=== PATIENT | female | born 1950 | race Caucasian/White ===

== ENCOUNTER → 2018-06-05 | Day surgery (SDC) | payer MEDICARE, OTHER ==
--- NOTE | 2018-05-30 15:44 | Diagnostic Imaging Report ---
EXAM: XR CHEST 2 VIEWS DATE: 05/30/2018 3:20 PM INDICATION: Preoperative. Right breast cancer. Hypertension. COMPARISON: 07/01/2016 FINDINGS: Lines and Tubes: None Heart and Mediastinum: No acute cardiomediastinal findings. Lungs and Pleura: Ill-defined haziness overlying the left lung base likely represents asymmetric breast tissue. No pneumothorax or pleural effusion. Bones and Soft Tissues: Right mastectomy changes and right axillary dissection changes. IMPRESSION: 1. No acute cardiopulmonary findings. Signed by: Dr. Rolly Arevalo MD on 05/30/2018 3:41 PM
[2018-05-30 16:02] LABS: BASOPHILS % 0.6 % (0.0-1.0); EOSINOPHILS # (AUTO) 0.1 (0.0-0.4); EOSINOPHILS % 1.5 % (0.0-6.0); HEMATOCRIT 38.7 % (34.2-44.1); HEMOGLOBIN 12.3 g/dL (12.0-16.0); LYMPHOCYTES # (AUTO) 1.9 (1.0-3.2); LYMPHOCYTES % 27.2 % (18.0-39.1); MEAN CORPUSCULAR HEMOGLOBIN 31.4 pg (28-32); MEAN CORPUSCULAR HGB CONC 31.8 g/dL (31-35); MEAN CORPUSCULAR VOLUME 98.7 fL (81-99); MONOCYTES # (AUTO) 0.5 (0.2-0.8); MONOCYTES % 6.8 % (4.4-11.3); NEUTROPHILS # (AUTO) 4.4 (2.1-6.9); NEUTROPHILS % 63.6 % (38.7-80.0); PLATELET COUNT 238 x10e3/uL (140-360); RED BLOOD COUNT 3.92 x10e6/uL (3.6-5.1); RED CELL DISTRIBUTION WIDTH 13.8 % (11.7-14.4)
[2018-05-30 16:22] LABS: CALCIUM 9.7 mg/dL (8.4-10.2); CREATININE, SERUM 0.98 mg/dL (0.57-1.11)
[~2018-06-05] MED LIST: ANASTROZOLE1 MG PO; CEFADROXIL1 GM PO; CEFAZOLIN SOD 1 GM VIAL ONE; DEXAMETHASONE SOD PHOS INJ 4 MG/ML VIAL ONE; FENTANYL CITRATE/PF 100MCG/2 ML INJ ONE; KETOROLAC TROMETHAMINE 30 MG/ML VIAL ONE; LIDOCAINE HCL 2% LOCAL INJ 5 ML SDV VIAL INJ ONE; LISINOPRIL10 MG PO; LORAZEPAM1 MG PO; METOPROLOL TART25 MG PO; MIDAZOLAM HCL 2 MG/2 ML VIAL ONE; ONDANSETRON HCL INJ 2 MG/ML VIAL ONE; PAROXETINE HCL40 MG PO; PAXIL40 MG PO; PRISTIQ ER50 MG PO; PROPOFOL IV EMULSION 10 MG/ML 20 ML VIAL ONE; SEVOFLURANE INHAL SOLN 250 ML PEN BTL ONE
--- OUTSIDE RECORDS SUMMARY | 2018-06-05 05:18 | XMS REPORT | Clinical Summary ---
Author Author [facility] Address Unknown Phone Unavailable Care Team Providers Care Plastic Battery Assembler Name Role Phone Ivanna Bailey MD PCP Allergies Active Allergy Reactions Severity Noted Date Comments Jykkmcf-Ueo-Yno Reductase 04/04/2018 Lips swell Inhibitors Current Medications Prescription Sig. Disp. Refills Start End Date Status Date anastrozole (ARIMIDEX) 1 Take 1 mg by mouth daily. 03/23/20 Active mg chemo tablet 18 cefadroxil (DURICEF) 1 Take 1 g by mouth daily. 03/09/20 Active gram tablet 18 cyclobenzaprine Take 10 mg by mouth 03/09/20 Active (FLEXERIL) 10 mg tablet nightly. 18 desvenlafaxine (PRISTIQ) Take 50 mg by mouth 03/09/20 Active 50 MG 24 hr tablet nightly. 18 lisinopril Take 20 mg by mouth 03/09/20 Active (PRINIVIL,ZESTRIL) 20 mg daily. 18 tablet LORAZepam (ATIVAN) 1 MG Take 1 mg by mouth 03/28/20 Active tablet nightly. 18 PARoxetine (PAXIL) 40 MG Take 40 mg by mouth 03/11/20 Active tablet nightly. 18 multivit with Take 1 tablet by mouth Active calcium,iron,min (WOMEN'S daily. DAILY MULTIVITAMIN ORAL) calcium carbonate Take 1 tablet by mouth Active (CALCIUM 600 ORAL) daily. cholecalciferol, vitamin Take 1,000 Units by mouth Active D3, (VITAMIN D3) 1,000 daily. unit tablet vit Take 1 tablet by mouth 2 Active C/E/Zn/coppr/lutein/zeaxa (two) times a day. n (PRESERVISION AREDS 2 ORAL) UNABLE TO FIND Take 2 tablets by mouth Active daily. Cholestoff vitamin E 400 UNIT Take 400 Units by mouth Active capsule daily. vitamin B complex (B Take 1 tablet by mouth Active COMPLEX-VITAMIN B12 ORAL) daily. docosahexanoic acid/epa Take 1 capsule by mouth Active (FISH OIL ORAL) daily. Active Problems Problem Noted Date S/P total hip arthroplasty 04/23/2018 Encounters Date Type Specialty Care Team Description 05/09/2018 Office Visit Orthopedic Surgery Alan Jackson MD Status post right hip replacement (Primary Dx) 04/23/2018 [facility] Orthopedic Surgery Alan Jackson MD Status post total - Encounter replacement of right hip 04/24/2018 (Primary Dx); Arthritis of right hip 04/23/2018 Procedure Pass Orthopedic Surgery 04/23/2018 Surgery Orthopedic Surgery Alan Jackson MD ARTHROPLASTY, HIP, TOTAL 04/11/2018 Pre-Admit Pre-Admission Testing Alan Jackson MD Preop testing (Primary Testing Dx) Appointment 04/11/2018 [facility] 04/04/2018 Office Visit Orthopedic Surgery Alan Jackson MD Arthritis of both hips (Primary Dx) 04/04/2018 Orders Only Orthopedic Surgery Meenakshi Caruso MA Bilateral hip pain (Primary Dx) after 06/04/2017 Immunizations Name Dates Previously Given Next Due FLUCELVAX QUAD PF (0.5mL 04/24/2018 syringe) Social History Tobacco Use Types Packs/Day Years Used Date Never Smoker Smokeless Tobacco: Never Used Alcohol Use Drinks/Week oz/Week Comments Yes rare Sex Assigned at Date Recorded Not on file Last Filed Vital Signs Vital Sign Reading Time Taken Blood Pressure 107/56 04/24/2018 10:41 AM CDT Pulse 88 04/24/2018 7:38 AM CDT Temperature 36 C (96.8 F) 04/24/2018 3:54 AM CDT Respiratory Rate 16 04/24/2018 7:38 AM CDT Oxygen Saturation 95% 04/24/2018 7:38 AM CDT Inhaled Oxygen - - Concentration Weight 73.1 kg (161 lb 3.2 oz) 04/23/2018 6:20 AM CDT Height 162.6 cm (5' 4") 04/23/2018 6:20 AM CDT Body Mass Index 27.67 04/23/2018 6:20 AM CDT Plan of Treatment Date Type Specialty Care Team Description 08/29/2018 Office Visit Orthopedic Surgery Alan Jackson MD [address] [address] [phone] Health Maintenance Due Date Last Done Comments BREAST CANCER SCREENING 01/09/1998 COLON CANCER SCREENING 01/09/1998 SHINGRIX VACCINE (#1) 01/09/1998 ZOSTER VACCINE 2008 PNEUMOCOCCAL 01/09/2013 POLYSACCHARIDE VACCINE AGE 65 AND OVER PNEUMOCOCCAL-13 01/09/2013 INFLUENZA VACCINE Completed 04/24/2018 Implants Implanted Type Area Heel Brusher Device Expiration Model / Identifier Date Serial / Lot G7 Acetabular Shell 3 Hole - IPM Right: Hip [employer] 03/01/2028 [id number] / Implanted: Qty: 1 on 04/23/2018 by [employer]ICES / Alan Jackson MD [id number] G7 Neutral E1 Liner 36mm E - IPM Right: Hip [employer] 02/03/2023 [id number] IMPLANT / Implanted: Qty: 1 on 04/23/2018 by [employer] / Alan Jackson MD [id number] Tprlc Stem - [id number] IPM Right: Hip [employer] 02/09/2028 [id number] Implanted: Qty: 1 on 04/23/2018 by YI / Alan Jackson MD [employer]ICES / [id number] Cer Bioloxd Mod Hd 36mm +6 Nk - IPM Right: Hip [employer] 07/20/2026 [id number] IMPLANT / Implanted: Qty: 1 on 04/23/2018 by [employer] / Alan Jackson MD [id number] Screw Bone Slf-Tap 6.5x25mm Trilogy Orthopedic Right: Hip [employer] 03/13/2028 [id number] - [id number] Trauma 5 / Implanted: Qty: 1 on 04/23/2018 by Implants / Alan Jackson MD [id number] Screw Bone Slf-Tap 6.5x25mm Trilogy Orthopedic Right: Hip [employer] 02/11/2028 [id number] - [id number] Trauma 5 / Implanted: Qty: 1 on 04/23/2018 by Implants / Alan Jackson MD [id number] Explanted Type Area Heel Brusher Device Expiration Model / Identifier Date Serial / Lot Screw Bone Slf-Tap 6.5x20mm Trilogy Orthopedic Right: Hip [employer] 02/11/2028 [id number] - [id number] Trauma 0 / Implanted: Qty: 1 Implants / Explanted: 04/23/2018 (Quantity not [id number] on file) Procedures Procedure Name Priority Date/Time Associated Diagnosis Comments POC GLUCOSE Routine 04/24/2018 Results for this 7:42 AM CDT procedure are in the results section. ZZESTIMATED GFR Routine 04/24/2018 Results for this 4:05 AM CDT procedure are in the results section. PHOSPHORUS LEVEL Routine 04/24/2018 Results for this 4:05 AM CDT procedure are in the results section. MAGNESIUM LEVEL Routine 04/24/2018 Results for this 4:05 AM CDT procedure are in the results section. B NATRIURETIC PEPTIDE Routine 04/24/2018 Results for this 4:05 AM CDT procedure are in the results section. BASIC METABOLIC PANEL Routine 04/24/2018 Results for this 4:05 AM CDT procedure are in the results section. CBC WITH PLATELET AND Routine 04/24/2018 Results for this DIFFERENTIAL 4:05 AM CDT procedure are in the results section. POC GLUCOSE Routine 04/23/2018 Results for this 9:23 PM CDT procedure are in the results section. XR HIP 2-3 VIEWS RIGHT Routine 04/23/2018 Results for this 7:31 PM CDT procedure are in the results section. POC GLUCOSE Routine 04/23/2018 Results for this 5:19 PM CDT procedure are in the results section. XR PELVIS 1 OR 2 VW Routine 04/23/2018 Results for this 10:22 AM CDT procedure are in the results section. SURGICAL PATHOLOGY Routine 04/23/2018 Results for this REQUEST 9:52 AM CDT procedure are in the results section. POC GLUCOSE Routine 04/23/2018 Results for this 9:48 AM CDT procedure are in the results section. XR PELVIS 1 OR 2 VW Routine 04/23/2018 Results for this 8:52 AM CDT procedure are in the results section. ARTHROPLASTY, HIP, TOTAL 04/23/2018 Arthritis of right hip 8:30 AM CDT Special Needs BIOMET ANESTHESIA SPINAL BLOCK Routine 04/23/2018 7:47 AM CDT Procedure Note - Sandra Palma MD - 04/23/2018 7:47 AM CDT Spinal Block Performed by: SANDRA PALMA Authorized by: SANDRA PALMA Patient Location: Pre-op Start Time: 04/23/2018 7:41 AM End Time: 04/23/2018 7:47 AM Reason for Block: at surgeon's request Staff: Anesthesio logist: SANDRA PALMA Performed by: Anesthesio hedy patient identified , IV checked, site and side verified, risks and benefits discussed, procedure verified, surgical consent complete, patient position confirmed, monitors and equipment checked and pre-op evaluation complete TIme Out Performed: 04/23/2018 7:38 AM Spinal Block: Patient Position: Sitting Prep: Betadine Monitoring : Blood pressure monitoring , continuous pulse oximetry and heart rate Approach: Midline Interspace : L2-3 Injection Technique: Single injection Needle: Needle Type: Quincke Needle Gauge: 22 G Assessment : Coagulatio n status: Coagulatio n status verified Block assessment : No apparent complicati ons and patient tolerated procedure well Notes: X 3 attempts, significan t leftward deviation and limited landmarks POC GLUCOSE Routine 04/23/2018 Results for this 6:39 AM CDT procedure are in the results section. URINE CULTURE Routine 04/11/2018 Results for this 1:45 PM CDT procedure are in the results section. ZZESTIMATED GFR Routine 04/11/2018 Results for this 1:12 PM CDT procedure are in the results section. PARTIAL THROMBOPLASTIN Routine 04/11/2018 Preop testing Results for this TIME (PTT) 1:12 PM CDT procedure are in the results section. PROTHROMBIN TIME WITH INR Routine 04/11/2018 Preop testing Results for this 1:12 PM CDT procedure are in the results section. URINALYSIS SCREEN AND Routine 04/11/2018 Preop testing Results for this MICROSCOPY, WITH REFLEX 1:12 PM CDT procedure are in the TO CULTURE results section. TYPE AND SCREEN Routine 04/11/2018 Preop testing Results for this 1:12 PM CDT procedure are in the results section. HEMOGLOBIN A1C Routine 04/11/2018 Preop testing Results for this 1:12 PM CDT procedure are in the results section. COMPREHENSIVE METABOLIC Routine 04/11/2018 Preop testing Results for this PANEL 1:12 PM CDT procedure are in the results section. HC COMPLETE BLD COUNT Routine 04/11/2018 Preop testing Results for this W/AUTO DIFF 1:12 PM CDT procedure are in the results section. XR HIP 3-4 VIEWS Routine 04/04/2018 Bilateral hip pain Results for this BILATERAL 9:09 AM CDT procedure are in the results section. after 06/04/2017 Results * POC glucose (04/24/2018 7:42 AM) Only the most recent of 5 results within the time period is included. POC glucose 105 (H) 65 - 99 mg/dL [facility] DEPARTMENT OF Comment: PATHOLOGY AND [facility] Notified RN GENOMIC MEDICINE Meter ID: [id number] Academic Tutor: Julio Parish Performing Organization Address City/[facility] Phone Number [facility] DEPARTMENT OF [address] [place] [address] PATHOLOGY AND GENOMIC MEDICINE * Estimated GFR (04/24/2018 4:05 AM) Only the most recent of 2 results within the time period is included. GFR Non Af Amer 62 mL/min/1.73 m2 [facility] DEPARTMENT OF PATHOLOGY AND GENOMIC MEDICINE GFR Af Amer 75 mL/min/1.73 m2 [facility] DEPARTMENT OF Comment: PATHOLOGY AND Chronic kidney disease: <60 GENOMIC MEDICINE mL/min/1.73m2 Kidney failure: <15 mL/min/1.73m2 The estimated GFR is calculated from the IDMS-traceable Modification of Diet in Renal Disease Equation. The accuracy of the calculation is poor when the creatinine is normal. Calculated values >90 mL/min/1.73m2 are not reported. This equation has not been validated in children (<18 years), women, the elderly (>70 years), or ethnic groups other than Caucasians and Americans. Specimen Plasma specimen Performing Organization Address City/State/Zipcode Phone Number [facility] DEPARTMENT OF [address] [place] [address] PATHOLOGY AND [employer] MEDICINE * CBC with platelet and differential (04/24/2018 4:05 AM) Only the most recent of 2 results within the time period is included. WBC 6.55 4.50 - 11.00 k/uL [facility] DEPARTMENT OF PATHOLOGY AND GENOMIC MEDICINE RBC 3.17 (L) 4.20 - 5.50 m/uL [facility] DEPARTMENT OF PATHOLOGY AND GENOMIC MEDICINE HGB 10.0 (L) 12.0 - 16.0 g/dL [facility] DEPARTMENT OF PATHOLOGY AND GENOMIC MEDICINE HCT 31.5 (L) 37.0 - 47.0 % [facility] DEPARTMENT OF PATHOLOGY AND GENOMIC MEDICINE MCV 99.4 82.0 - 100.0 fL [facility] DEPARTMENT OF PATHOLOGY AND GENOMIC MEDICINE MCH 31.5 27.0 - 34.0 pg [facility] DEPARTMENT OF PATHOLOGY AND GENOMIC MEDICINE MCHC 31.7 31.0 - 37.0 g/dL [facility] DEPARTMENT OF PATHOLOGY AND GENOMIC MEDICINE RDW - SD 48.5 37.0 - 55.0 fL [facility] DEPARTMENT OF PATHOLOGY AND GENOMIC MEDICINE MPV 10.7 8.8 - 13.2 fL [facility] DEPARTMENT OF PATHOLOGY AND GENOMIC MEDICINE Platelet count 194 150 - 400 k/uL [facility] DEPARTMENT OF PATHOLOGY AND GENOMIC MEDICINE Nucleated RBC 0.00 /100 WBC [facility] DEPARTMENT OF PATHOLOGY AND GENOMIC MEDICINE Neutrophils 61.9 39.0 - 69.0 % [facility] DEPARTMENT OF PATHOLOGY AND GENOMIC MEDICINE Lymphocytes 27.5 25.0 - 45.0 % [facility] DEPARTMENT OF PATHOLOGY AND GENOMIC MEDICINE Monocytes 9.5 0.0 - 10.0 % [facility] DEPARTMENT OF PATHOLOGY AND GENOMIC MEDICINE Eosinophils 0.5 0.0 - 5.0 % [facility] DEPARTMENT OF PATHOLOGY AND GENOMIC MEDICINE Basophils 0.3 0.0 - 1.0 % [facility] DEPARTMENT OF PATHOLOGY AND GENOMIC MEDICINE Immature granulocytes 0.3Comment: "Immature 0.0 - 1.0 % [facility] DEPARTMENT OF granulocytes" (promyelocytes, PATHOLOGY AND myelocytes, metamyelocytes) GENOMIC MEDICINE Specimen Blood Performing Organization Address City/[facility] [place] [address] PATHOLOGY AND [facility] * Phosphorus level (04/24/2018 4:05 AM) Phosphorus 3.0 2.4 - 4.5 mg/dL [facility] DEPARTMENT OF PATHOLOGY AND GENOMIC MEDICINE Specimen Plasma specimen Performing Organization Address City/[facility] [place] [address] PATHOLOGY AND [facility] MEDICINE * B natriuretic peptide (04/24/2018 4:05 AM) BNP 61 0 - 100 pg/mL [facility] DEPARTMENT OF PATHOLOGY AND GENOMIC MEDICINE Specimen Blood Performing Organization Address [facility] Phone Number [facility] [place] [address] PATHOLOGY AND GENOMIC MEDICINE * Magnesium level (04/24/2018 4:05 AM) Magnesium 1.9 1.6 - 2.4 mg/dL [facility] DEPARTMENT OF PATHOLOGY AND GENOMIC MEDICINE Specimen Plasma specimen Performing Organization Address [facility] [place] [address] PATHOLOGY AND GENOMIC MEDICINE * Basic metabolic panel (04/24/2018 4:05 AM) Sodium 141 135 - 148 mEq/L [facility] DEPARTMENT OF PATHOLOGY AND GENOMIC MEDICINE Potassium 4.4 3.5 - 5.0 mEq/L [facility] DEPARTMENT OF PATHOLOGY AND GENOMIC MEDICINE Chloride 104 98 - 112 mEq/L [facility] DEPARTMENT OF PATHOLOGY AND GENOMIC MEDICINE CO2 26 24 - 31 mEq/L [facility] DEPARTMENT OF PATHOLOGY AND GENOMIC MEDICINE Anion gap 11@ANIO 7 - 15 mEq/L [facility] DEPARTMENT OF PATHOLOGY AND GENOMIC MEDICINE BUN 13 8 - 23 mg/dL [facility] DEPARTMENT OF PATHOLOGY AND GENOMIC MEDICINE Creatinine 0.9 0.50 - 0.90 mg/dL [facility] DEPARTMENT OF PATHOLOGY AND GENOMIC MEDICINE Glucose 101 (H) 65 - 99 mg/dL [facility] DEPARTMENT OF PATHOLOGY AND GENOMIC MEDICINE Calcium 8.5 (L) 8.8 - 10.2 mg/dL [facility] DEPARTMENT OF PATHOLOGY AND GENOMIC MEDICINE Specimen Plasma specimen Performing Organization Address [facility] Phone Number [facility] DEPARTMENT OF [address] [place] [address] PATHOLOGY AND GENOMIC MEDICINE * XR Hip 2-3 View Right (04/23/2018 7:31 PM) Narrative Performed At EXAMINATION:XR HIP 2-3 VIEWS RIGHT [facility] CLINICAL HISTORY:post-op COMPARISON:None. IMPRESSION: 1.2 view evaluation of the right hip demonstrates hardware associated with a total right hip arthroplasty. Hardware is satisfactory alignment. [facility]-[id number] Procedure Note Interface, Radiology Results Incoming - 04/23/2018 8:06 PM CDT EXAMINATION: XR HIP 2-3 VIEWS RIGHT CLINICAL HISTORY: post-op COMPARISON: None. IMPRESSION: 1. 2 view evaluation of the right hip demonstrates hardware associated with a total right hip arthroplasty. Hardware is satisfactory alignment. [facility]-[id number] Performing Organization Address [facility]/Zipcode Phone Number [facility] [address] [place] [address] * XR Pelvis 1 Or 2 Vw (04/23/2018 10:22 AM) Only the most recent of 2 results within the time period is included. Narrative Performed At EXAMINATION: XR PELVIS 1 OR 2 VW [facility] INDICATION: Post Op COMPARISON: 04/23/2018 IMPRESSION: A single view of the pelvis was obtained demonstrating expected postoperative changes following right total hip arthroplasty with appropriate implant alignment. [facility]-[id number] Procedure Note Interface, Radiology Results Incoming - 04/23/2018 10:31 AM CDT EXAMINATION: XR PELVIS 1 OR 2 VW INDICATION: Post Op COMPARISON: 04/23/2018 IMPRESSION: A single view of the pelvis was obtained demonstrating expected postoperative changes following right total hip arthroplasty with appropriate implant alignment. [facility]-[id number] Performing Organization Address [facility] Phone Number [facility] [address] [place] [address] * Surgical pathology request (04/23/2018 9:52 AM) [facility] DEPARTMENT OF PATHOLOGY AND GENOMIC MEDICINE Surgical pathology report See link below for PDF Lab [facility] DEPARTMENT OF Report PATHOLOGY AND GENOMIC MEDICINE Result status This is Final Report for [facility] DEPARTMENT OF [id number] PATHOLOGY AND GENOMIC MEDICINE Performing Organization Address [facility] Phone [facility] DEPARTMENT [address] [address] PATHOLOGY AND GENOMIC MEDICINE * Urine culture (04/11/2018 1:45 PM) Urine culture SEE COMMENTComment: [facility] DEPARTMENT OF Bacteriuria screen negative. PATHOLOGY AND GENOMIC MEDICINE Performing Organization Address [facility] Phone Number [facility] DEPARTMENT [address] [address] PATHOLOGY AND GENOMIC MEDICINE * Urinalysis screen and microscopy, with reflex to culture (04/11/2018 1:12 PM) Specimen site Clean catch [facility] DEPARTMENT OF PATHOLOGY AND GENOMIC MEDICINE Color, UA Straw [facility] DEPARTMENT OF PATHOLOGY AND GENOMIC MEDICINE Appearance, UA Clear [facility] DEPARTMENT OF PATHOLOGY AND GENOMIC MEDICINE Specific gravity, UA 1.010 1.001 - 1.035 [facility] DEPARTMENT OF PATHOLOGY AND GENOMIC MEDICINE pH, UA 6.0 5.0 - 8.5 [facility] DEPARTMENT OF PATHOLOGY AND GENOMIC MEDICINE Protein, UA Negative Negative [facility] DEPARTMENT OF PATHOLOGY AND GENOMIC MEDICINE Glucose, UA Negative Negative [facility] DEPARTMENT OF PATHOLOGY AND GENOMIC MEDICINE Ketones, UA Negative Negative [facility] DEPARTMENT OF PATHOLOGY AND GENOMIC MEDICINE Bilirubin, UA Negative Negative [facility] DEPARTMENT OF PATHOLOGY AND GENOMIC MEDICINE Blood, UA Negative Negative [facility] DEPARTMENT OF PATHOLOGY AND GENOMIC MEDICINE Nitrite, UA Negative Negative [facility] DEPARTMENT OF PATHOLOGY AND GENOMIC MEDICINE Urobilinogen, UA <2.0 <2.0 [facility] DEPARTMENT OF PATHOLOGY AND GENOMIC MEDICINE Leukocyte esterase, UA Negative Negative [facility] DEPARTMENT OF PATHOLOGY AND GENOMIC MEDICINE Epithelial cells, UA <1 /HPF [facility] DEPARTMENT OF PATHOLOGY AND GENOMIC MEDICINE WBC, UA None seen 0 - 4 /HPF [facility] DEPARTMENT OF PATHOLOGY AND GENOMIC MEDICINE RBC, UA 1 0 - 5 /HPF [facility] DEPARTMENT OF PATHOLOGY AND GENOMIC MEDICINE Bacteria, UA None seen None seen [facility] DEPARTMENT OF PATHOLOGY AND GENOMIC MEDICINE Yeast, UA None seen [facility] DEPARTMENT OF PATHOLOGY AND GENOMIC MEDICINE Yeast with pseudohyphae, None seen [facility] DEPARTMENT [facility] PATHOLOGY AND GENOMIC MEDICINE Specimen Urine Performing Organization Address [facility] [place] [address] PATHOLOGY AND [employer] MEDICINE * Partial thromboplastin time, activated (04/11/2018 1:12 PM) PTT 33.7 23.0 - 36.0 sec [facility] DEPARTMENT OF Comment: PATHOLOGY AND PTT therapeutic range for [facility] unfractionated heparin is 61.0-112.0 seconds which corresponds to Anti-Xa 0.3-0.7 U/ml. Specimen Blood Performing Organization Address [facility] Phone Number [address] [address] PATHOLOGY AND [employer] MEDICINE * Prothrombin time with INR (04/11/2018 1:12 PM) Prothrombin time 13.5 12.0 - 15.0 sec [facility] DEPARTMENT OF PATHOLOGY AND GENOMIC MEDICINE INR 1.0 [facility] DEPARTMENT OF Comment: PATHOLOGY AND The International Normalized GENOMIC MEDICINE Ratio (INR) is a therapeutic monitoring tool for patients who are stable on oral anticoagulant therapy. An INR of 2.0-3.0 is suggested for deep vein thrombosis/pulmonary embolism. Specimen Blood Performing Organization Address City/[facility] Phone Number [address] [address] PATHOLOGY AND [employer] MEDICINE * Type and screen (04/11/2018 1:12 PM) ABO grouping O [facility] DEPARTMENT OF PATHOLOGY AND GENOMIC MEDICINE Rh type POS [facility] DEPARTMENT OF PATHOLOGY AND GENOMIC MEDICINE Antibody screen (gel) NEG [facility] DEPARTMENT OF PATHOLOGY AND GENOMIC MEDICINE Specimen Blood Performing Organization Address City/[facility] [place] [address] PATHOLOGY AND GENOMIC MEDICINE * Hemoglobin A1c (04/11/2018 1:12 PM) Hemoglobin A1C 6.0 (H) 4.0 - 5.6 % [facility] DEPARTMENT OF Comment: PATHOLOGY AND HbA1c cutoffs for diagnosing GENOMIC MEDICINE diabetes: 4.0% - 5.6%=normal 5.7% - 6.4%=increased risk for diabetes (prediabetes) >=6.5%=diabetes Goals for glycemic control (ADA 2016) < 7.0%Target for non adults with diabetes. More or less stringent targets may be appropriate for individual patients. <7.5% Target for Children and adolescents with type 1 diabetes. Specimen Blood Performing Organization Address City/[facility]/[place] [address] PATHOLOGY AND [employer] MEDICINE * Comprehensive metabolic panel (04/11/2018 1:12 PM) Sodium 142 135 - 148 mEq/L [facility] DEPARTMENT OF PATHOLOGY AND GENOMIC MEDICINE Potassium 4.2 3.5 - 5.0 mEq/L [facility] DEPARTMENT OF PATHOLOGY AND GENOMIC MEDICINE Chloride 101 98 - 112 mEq/L [facility] DEPARTMENT OF PATHOLOGY AND GENOMIC MEDICINE CO2 30 24 - 31 mEq/L [facility] DEPARTMENT OF PATHOLOGY AND GENOMIC MEDICINE Anion gap 11@ANIO 7 - 15 mEq/L [facility] DEPARTMENT OF PATHOLOGY AND GENOMIC MEDICINE BUN 20 8 - 23 mg/dL [facility] DEPARTMENT OF PATHOLOGY AND GENOMIC MEDICINE Creatinine 0.9 0.50 - 0.90 mg/dL [facility] DEPARTMENT OF PATHOLOGY AND GENOMIC MEDICINE Glucose 114 (H) 65 - 99 mg/dL [facility] DEPARTMENT OF PATHOLOGY AND GENOMIC MEDICINE Calcium 10.0 8.8 - 10.2 mg/dL [facility] DEPARTMENT OF PATHOLOGY AND GENOMIC MEDICINE Protein 8.1 6.3 - 8.3 g/dL [facility] DEPARTMENT OF Comment: PATHOLOGY AND [place] GENOMIC MEDICINE 4.6-7.0 g/dL 1 week 4.4-7.6 g/dL 7 months-1year 5.1-7.3 g/dL 1-2 years5.6-7 .5 g/dL >3 years6.0-8 .0 g/dL 18-150 6.3-8.3 g/dL Albumin 4.7 3.5 - 5.0 g/dL [facility] DEPARTMENT OF PATHOLOGY AND GENOMIC MEDICINE A/G ratio 1.4 0.7 - 3.8 [facility] DEPARTMENT OF PATHOLOGY AND GENOMIC MEDICINE Alkaline phosphatase 115 (H) 35 - 104 U/L [facility] DEPARTMENT OF PATHOLOGY AND GENOMIC MEDICINE AST 16 10 - 35 U/L [facility] DEPARTMENT OF PATHOLOGY AND GENOMIC MEDICINE ALT 16 5 - 50 U/L [facility] DEPARTMENT OF PATHOLOGY AND GENOMIC MEDICINE Total bilirubin <0.2 0.0 - 1.2 mg/dL [facility] DEPARTMENT OF PATHOLOGY AND GENOMIC MEDICINE Specimen Plasma specimen Performing Organization Address City/State/Zipcode Phone Number [facility] DEPARTMENT OF [address] [place] [id number] PATHOLOGY AND GENOMIC MEDICINE * XR Hip 3-4 Views Bilateral (04/04/2018 9:09 AM) Narrative Performed At [facility] Hip x-rays show severe arthritis of both hips right greater than left. 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
--- OUTSIDE RECORDS SUMMARY | 2018-06-05 05:19 | XMS REPORT ---
Author Author [facility] Address Unknown Phone Unavailable Care Team Providers Care Lap Cutter Name Role Phone SHANTE REGAN Unavailable Unavailable Problems This patient has no known problems. Allergies, Adverse Reactions, Alerts This patient has no known allergies or adverse reactions. Medications This patient has no known medications. Results Test Description Test Time Test Comments Text Results Atomic Results Result Comments CHEST 2 VIEWS 2018-05-30 15:40:00 [place] [address] Patient Name: VICKY SHIELDS MR #: [id number] : 1950 Age/Sex: 68/F Req #: [id number] Adm Physician: Ordered by: SHANTE REGAN MD Report #: [id number] Location: OR Room/Bed: Procedure: [id number] DX/CHEST 2 VIEWS Exam Date: 05/30/18 Exam Time: 1525 REPORT STATUS: Signed EXAM: XR CHEST 2 VIEWS DATE: 05/30/2018 3:20 PM LIZZIE CATION: Preoperative. Right breast cancer. Hypertension. COMPARISON: 07/01/2016 FINDINGS: Lines and Tubes: None Heart and Mediastinum: No acute cardiomediastinal findings. Lungs and Pleura: Ill-defined haziness overlying the left lung base likely represents asymmetric breast tissue. No pneumothorax or pleural effusion. Bones and Soft Tissues: Right mastectomy changes and right axillary dissection changes. IMPRESSION: 1. No acute cardiopulmonary findings. Signed by: Dr. Rhiannon Arevalo MD on 05/30/2018 3:41 PM Dictated By: RHIANNON AREVALO MD [id number] Transcribed By: TOY on 05/30/181540 COPY TO: SHANTE REGAN MD
--- OUTSIDE RECORDS SUMMARY | 2018-06-05 05:19 | XMS REPORT | Summary of Care ---
Author Author [facility] Organization [facility] Address Unknown Phone Unavailable Encounter HQ Encntr_alias(FIN) [id number] Date(s): 05/03/17 - 05/03/17 [facility] [address] Discharge Disposition: Home or Self Care Attending Physician: Gayatri Bhatt MD Vital Signs No data available for this section Problem List No data available for this section Allergies, Adverse Reactions, Alerts No data available for this section Medications No data available for this section Results No data available for this section Immunizations No data available for this section Procedures No data available for this section Social History No data available for this section Assessment and Plan No data available for this section
--- OUTSIDE RECORDS SUMMARY | 2018-06-05 05:19 | XMS REPORT | Summary of Care ---
Author Author [facility] Organization [facility] Address Unknown Phone Unavailable Encounter HQ Susan(FRANKIE) [id number] Date(s): 07/14/17 - 07/14/17 [facility] [address] [place] [address]- Discharge Disposition: Home or Self Care Attending Physician: Clara Chaney DO Referring Physician: Clara Chaney DO Vital Signs No data available for this section Problem List Condition Effective Dates Status Health Status Informant Anxiety(Confirmed) Active Depression(Confirmed Active ) Arthritis(Confirmed) Active HTN Active (hypertension)(Confi rmed) Breast Active cancer(Confirmed) Allergies, Adverse Reactions, Alerts Substance Reaction Severity Status statins Active Medications No data available for this section Results No data available for this section Immunizations No data available for this section Procedures Procedure Date Related Diagnosis Body Site Hysterectomy Procedure1 1trigger finger x3 left hand Social History Social History Type Response Substance Abuse Use: None. Alcohol Current, Frequency: 1-2 times per month. Smoking Status Never smoker; Exposure to Tobacco Smoke None; Cigarette Smoking Last 365 Days No; Reg Smoking Cessation Counseling No Assessment and Plan No data available for this section
--- OUTSIDE RECORDS SUMMARY | 2018-06-05 05:19 | XMS REPORT | Continuity of Care Document ---
Author Author [place] [facility] Interface Address Unknown Phone Unavailable Problems Problem Status Onset Date Classification Date Reported Comments Source C50.211=MALIGNANT NEOPLASM OF UPPER-INNE Active 07/11/2017 [facility] C50.211 RIGHT BREAST CANCER Active 05/24/2017 [facility] C50.311 - MALIG NEOPLM OF LOWER-INNER QU Active 04/26/2017 [facility] [place] Anxiety Active Problem 07/17/2017 [facility] Depression Active Problem 07/17/2017 [facility] Arthritis Active Problem 07/17/2017 [facility] HTN (<span [id number]</span>) Active Problem 07/17/2017 [facility] Breast cancer Active Problem 07/17/2017 [facility] AGE-RELATED OSTEOPOROSIS W/O CURRENT PAT Active [facility] Medications Medication Details Route Status Patient Instructions Ordering Provider Order Date Source Enoxaparin 40 mg, Route: SUB-Q, Drug form: INJ, [id number], Dosing Weight 70.455, kg, Start date: 06/06/17 11:30:00 CDT, Duration: 30 day, Stop date: 07/05/17 11:30:00 NEWSPAPER DELIVERY COUNSELOR No Longer Active 06/06/2017 [facility] Acetaminophen 325 MG / tramadol hydrochloride 37.5 MG Oral Tablet [Ultracet] 1 tab, PO, Q8H, PRN Pain, X 10 day, # 20 tab, 0 Refill(s) Active 06/06/2017 [facility] Paxil 80 mg, 4 tab, Route: PO, Drug form: TAB, Daily, Dosing Weight 70.455, kg, Start date: 06/06/17 9:00:00 CDT, Duration: 30 day, Stop date: 07/05/17 9:00:00 CSTNotes: (Same as: Paxil) Inactive 06/06/2017 [facility] Lorazepam 1 mg, 1 tab, Route: PO, Drug form: TAB, Daily, Dosing Weight 70.455, kg, Start date: 06/06/17 9:00:00 CDT, Duration: 30 day, Stop date: 07/05/17 9:00:00 CSTNotes: (Same as: Ativan) Inactive 06/06/2017 [facility] Lisinopril 20 mg, 1 tab, Route: PO, Drug form: TAB, Daily, Dosing Weight 70.455, kg, Start date: 06/06/17 9:00:00 CDT, Duration: 30 day, Stop date: 07/05/17 9:00:00 CSTNotes: (Same as: Prinivil, Zestril) Inactive 06/06/2017 [facility] 24 HR Desvenlafaxine 50 MG Extended Release Tablet [Pristiq] 50 mg, 1 tab, Route: PO, Drug form: ERTAB, Daily, Dosing Weight 70.455, kg, Start date: 06/06/17 9:00:00 CDT, Duration: 30 day, Stop date: 07/05/17 9:00:00 CSTNotes: Same as: Pristiq Non-Formulary Item Inactive 06/06/2017 [facility] Lovenox 40 mg, 0.4 mL, Route: SUB-Q, Drug form: INJ, [id number], Start date: 06/06/17 8:00:00 CDT, Duration: 30 day, Stop date: 07/05/17 8:00:00 CSTNotes: (Same as: Lovenox) Inactive 06/06/2017 [facility] ceFAZolin 2 gm, 100 mL, Route: IVPB, Drug form: INJ, [id number], Start date: 06/05/17 18:00:00 CDT, Duration: 3 doses or times, Stop date: 06/06/17 10:00:00 CDT, ABX Indication: Surgical ProphylaxisNotes: Same as: Ancef Active 06/05/2017 [facility] Sodium Chloride 0.9% IV 250 mL, Route: IVPB, Start date: 06/05/17 16:34:00 CDT, Duration: 30 day, Stop date: 07/05/17 15:33:00 NEWSPAPER DELIVERY COUNSELOR, PRN Line Flush No Longer Active 06/05/2017 [facility] BD Normal Saline Flush 10 mL, Route: IVP, Drug Form: INJ, PRN, PRN Line Flush, Start date: 06/05/17 16:34:00 CDT, Duration: 30 day, Stop date: 07/05/17 15:33:00 CSTNotes: (Same as: BD Posiflush) No Longer Active 06/05/2017 [facility] tramadol hydrochloride 50 MG Oral Tablet 1 tab, Route: PO, Drug form: TAB, Q4H, Dosing Weight 70.455, kg, Start date: 06/05/17 16:00:00 CDT, Duration: 30 day, Stop date: 07/05/17 12:00:00 NEWSPAPER DELIVERY COUNSELOR Inactive 06/05/2017 [facility] Clindamycin 600 mg, Route: IVPB, Drug form: INJ, Q8H, Dosing Weight 70.455, kg, Start date: 06/05/17 16:00:00 CDT, Duration: 2 doses or times, Stop date: 06/06/17 0:00:00 CDT, ABX Indication: Surgical Prophylaxis Inactive 06/05/2017 [facility] Cefazolin 1 gm, Route: IVPB, Drug form: INJ, Q8H, Dosing Weight 70.455, kg, Start date: 06/05/17 16:00:00 CDT, Duration: 2 doses or times, Stop date: 06/06/17 0:00:00 CDT, ABX Indication: Surgical Prophylaxis Inactive 06/05/2017 [facility] Ondansetron 4 mg, 2 mL, Route: IVP, Drug form: INJ, Q2H, Dosing Weight 70.455, kg, PRN Nausea & Vomiting, Start date: 06/05/17 12:06:00 CDT, Duration: 30 day, Stop date: 07/05/17 12:05:00 CSTNotes: (Same as: Glendy) MEDICATION WASTE Product Size: 4 mg Product Wasted: ___ mg No Longer Active 06/05/2017 [facility] Morphine 2 mg, 1 mL, Route: IVP, Drug form: SOLN, Q2H, Dosing Weight 70.455, kg, PRN Pain Score 1-3, Start date: 06/05/17 12:06:00 CDT, Duration: 30 day, Stop date: 07/05/17 12:05:00 NEWSPAPER DELIVERY COUNSELOR No Longer Active 06/05/2017 [facility] Acetaminophen 650 mg, 2 tab, Route: PO, Drug form: TAB, Q4H, Dosing Weight 70.455, kg, PRN Pain 1-3/Temp > 100.4 F, Start date: 06/05/17 12:06:00 CDT, Duration: 30 day, Stop date: 07/05/17 12:05:00 CSTNotes: Do not exceed 4 gm/day. (Same as: Tylenol) No Longer Active 06/05/2017 [facility] Calcium Chloride 0.0014 MEQ/ML / Potassium Chloride 0.004 MEQ/ML / Sodium Chloride 0.103 MEQ/ML / Sodium Lactate 0.028 MEQ/ML Injectable Solution 1,000 mL, Rate: 40 ml/hr, Infuse over: 25 hr, Route: IV, Dosing Weight 70.455 kg, Total Volume: 1,000, Start date: 06/05/17 12:06:00 CDT, Duration: 30 day, Stop date: 07/05/17 12:05:00 NEWSPAPER DELIVERY COUNSELOR No Longer Active 06/05/2017 [facility] tramadol hydrochloride 50 MG Oral Tablet 100 mg, 2 tab, Route: PO, Drug form: TAB, Q4H, Dosing Weight 70.455, kg, Start date: 06/05/17 12:00:00 CDT, Duration: 30 day, Stop date: 07/05/17 8:00:00 CSTNotes: Not to exceed 400mg/day. (Same As: Ultram) No Longer Active 06/05/2017 [facility] Morphine 2 mg, 1 mL, Route: IVP, Drug form: SOLN, Q2H, Dosing Weight 70.455, kg, PRN Pain Score 1-3, Start date: 06/05/17 9:25:00 CDT, Duration: 30 day, Stop date: 07/05/17 9:24:00 NEWSPAPER DELIVERY COUNSELOR Inactive 06/05/2017 [facility] Ondansetron 4 mg, 2 mL, Route: IVP, Drug form: INJ, Q2H, Dosing Weight 70.455, kg, PRN Nausea & Vomiting, Start date: 06/05/17 9:25:00 CDT, Duration: 30 day, Stop date: 07/05/17 9:24:00 CSTNotes: (Same as: Glendy) MEDICATION WASTE Product Size: 4 mg Product Wasted: ___ mg Inactive 06/05/2017 [facility] Acetaminophen 650 mg, 2 tab, Route: PO, Drug form: TAB, Q4H, Dosing Weight 70.455, kg, PRN Pain 1-3/Temp > 100.4 F, Start date: 06/05/17 9:25:00 CDT, Duration: 30 day, Stop date: 07/05/17 9:24:00 CSTNotes: Do not exceed 4 gm/day. (Same as: Tylenol) Inactive 06/05/2017 [facility] Calcium Chloride 0.0014 MEQ/ML / Potassium Chloride 0.004 MEQ/ML / Sodium Chloride 0.103 MEQ/ML / Sodium Lactate 0.028 MEQ/ML Injectable Solution 1,000 mL, Rate: 40 ml/hr, Infuse over: 25 hr, Route: IV, Dosing Weight 70.455 kg, Total Volume: 1,000, Start date: 06/05/17 9:25:00 CDT, Duration: 30 day, Stop date: 07/05/17 9:24:00 NEWSPAPER DELIVERY COUNSELOR Inactive 06/05/2017 [facility] Insulin Lispro 8 unit, 0.08 mL, Route: SUB-Q, Drug form: SOLN, Sliding Scale, Dosing Weight 70.455, kg, PRN Blood Glucose Results, Start date: 06/05/17 8:09:00 CDT, Duration: 30 day, Stop date: 07/05/17 7:08:00 NEWSPAPER DELIVERY COUNSELOR Notes: Roll in palms of hands gently; Do not shake `vigorously. (Same as: Humalog ) "Single Patient Use Only " WASTE: F/P - Black; E - Oodrive Trash Bin Stable for 28 days at room temperature. Expires in days from Date Inactive 06/05/2017 [facility] Hydromorphone 0.5 mg, 0.5 mL, Route: IVP, Drug form: INJ, Q5Min, Dosing Weight 70.455, kg, PRN Pain Score 7-10, Start date: 06/05/17 8:09:00 CDT, Duration: 4 doses or times, Stop date: Limited # of times Inactive 06/05/2017 [facility] Flumazenil 0.2 mg, 2 mL, Route: IVP, Drug form: INJ, PRN, Dosing Weight 70.455, kg, PRN Benzodiazepine Reversal, Initial dose, Start date: 06/05/17 8:09:00 CDT, Duration: 30 day, Stop date: 07/05/17 7:08:00 NEWSPAPER DELIVERY COUNSELOR Notes: (Same as: Romazicon) Inactive 06/05/2017 [facility] Naloxone 0.4 mg, 1 mL, Route: IVP, Drug form: INJ, Q2MIN, Dosing Weight 70.455, kg, PRN Narcotic Reversal, Start date: 06/05/17 8:09:00 CDT, Duration: 8 doses or times, Stop date: Limited # of timesNotes: Same as Narcan Inactive 06/05/2017 [facility] Diphenhydramine 12.5 mg, 0.25 mL, Route: IVP, Drug form: INJ, Q6H, Dosing Weight 70.455, kg, PRN Itching, Start date: 06/05/17 8:09:00 CDT, Duration: 30 day, Stop date: 07/05/17 8:08:00 CSTNotes: (Same as: Benadryl) Inactive 06/05/2017 [facility] Meperidine 12.5 mg, 0.25 mL, Route: IVP, Drug form: INJ, Q30Min, Dosing Weight 70.455, kg, PRN Other -See Comment, For shivering, Start date: 06/05/17 8:09:00 CDT, Duration: 2 doses or times, Stop date: Limited # of timesNotes: (Same As: Demerol) Inactive 06/05/2017 [facility] Ondansetron 4 mg, 2 mL, Route: IVP, Drug form: INJ, ONCE, Dosing Weight 70.455, kg, PRN Nausea & Vomiting, Start date: 06/05/17 8:09:00 CDTNotes: (Same as: Zofran) MEDICATION WASTE Product Size: 4 mg Product Wasted: ___ mg Inactive 06/05/2017 [facility] Acetazolamide 250 mg, Route: IV, Drug form: PDR/INJ, ONCE, Dosing Weight 70.455, kg, PRN Cramps, Start date: 06/05/17 8:09:00 CDTNotes: (Same as: Diamox) Inactive 06/05/2017 [facility] Promethazine 6.25 mg, Route: IVPB, ONCE, Dosing Weight 70.455, kg, PRN Nausea & Vomiting, Start date: 06/05/17 8:09:00 CDT Inactive 06/05/2017 [facility] 72 HR Scopolamine 0.0139 MG/HR Transdermal Patch 1 patch, Route: TOP, Drug Form: ERFILM, Dosing Weight 70.455, kg, ONCE, Apply behind ear. Avoid use in elderly., Start date: 06/05/17 8:09:00 CDT, Stop date: 06/05/17 8:09:00 CDTNotes: Change patch every 72 hours (Same as: Transderm-Scop) Inactive 06/05/2017 [facility] Acetaminophen 1,000 mg, 2 tab, Route: PO, Drug form: TAB, ONCE, Dosing Weight 70.455, kg, PRN Pain Score 1-3, Start date: 06/05/17 8:09:00 CDT, Duration: 1 doses or times, Stop date: Limited # of timesNotes: Max acetaminophen 4000 mg/day (4 gm/day). (Same as: Tylenol Extra Strength) Inactive 06/05/2017 [facility] Oxycodone 5 mg, 1 tab, Route: PO, Drug form: TAB, Q4H, Dosing Weight 70.455, kg, PRN Pain Score 4-6, Start date: 06/05/17 8:09:00 CDT, Duration: 30 day, Stop date: 07/05/17 8:08:00 CSTNotes: (Same as: Roxicodone) Inactive 06/05/2017 [facility] Morphine 2 mg, 1 mL, Route: IVP, Drug form: SOLN, Q5Min, Dosing Weight 70.455, kg, PRN Pain Score 4-6, Start date: 06/05/17 8:09:00 CDT, Duration: 5 doses or times, Stop date: Limited # of times Inactive 06/05/2017 [facility] Metoprolol 1 mg, 1 mL, Route: IVP, Drug form: INJ, Q5Min, Dosing Weight 70.455, kg, PRN Other -See Comment, Start date: 06/05/17 8:09:00 CDT, Duration: 5 doses or times, Stop date: Limited # of timesNotes: (Same as: Lopressor) Push over 2 minutes Inactive 06/05/2017 [facility] Hydralazine 10 mg, 0.5 mL, Route: IVP, Drug form: INJ, Q20Min, Dosing Weight 70.455, kg, PRN Elevated BP, Start date: 06/05/17 8:09:00 CDT, Duration: 2 doses or times, Stop date: Limited # of timesNotes: (Same as: Apresoline) Push over 5 minutes Inactive 06/05/2017 [facility] Reglan 10 mg, 2 mL, Route: IVP, Drug form: INJ, Q6H, Dosing Weight 70.455, kg, PRN Nausea & Vomiting, Start date: 06/05/17 8:09:00 CDT, Duration: 30 day, Stop date: 07/05/17 8:08:00 CSTNotes: (Same as: Reglan) Inactive 06/05/2017 [facility] Calcium 500+D 1 tab, CHEW, Daily Active 05/30/2017 [facility] Fish Oil 1,000 mg, PO, Daily Active 05/30/2017 [facility] Vitamin E 400 IntlUnit, PO, Daily Active 05/30/2017 [facility] Vitamin B12 1,000 microgram, PO, Daily Active 05/30/2017 [facility] Pristiq 50 mg, PO, Daily Active 05/30/2017 [facility] Womens Pack oral tablet 1 tab, PO, Daily Active 05/30/2017 [facility] Eye Health Formula oral capsule 1 cap, PO, Daily Active 05/30/2017 [facility] cefadroxil 1 g oral tablet 1,000 mg=1 tab, PO, Daily Active 05/30/2017 [facility] Paxil 80 mg, PO, Daily Active 05/30/2017 [facility] Lorazepam 1 mg, PO, Daily Active 05/30/2017 [facility] Lisinopril 20 mg, PO, Daily Active 05/30/2017 [facility] Allergies, Adverse Reactions, Alerts Substance Category Reaction Severity Reaction type Status Date Reported Comments Source statins Assertion Drug allergy Active [facility] Immunizations Immunization Date Given Site Status Last Updated Comments Source Results Order Name Results Value Reference Range Date Interpretation Comments Source Breast Mammo Scrn UNI w roger incl CAD MA Breast Mammo Scrn UNI w roger incl CAD MA UNILATERAL LEFT DIGITAL SCREENING MAMMOGRAM 3D/2D WITH CAD: 03/22/2018 CLINICAL: /Z12.31 Encounter For Screening Mammogram For Malignant Neoplasm Of Breast. Current study was evaluated with a Computer Aided Detection (CAD) system. COMPARISON:Comparison is made to exam dated: 03/22/2017 mammogram. TECHNIQUE: Digital Breast Tomosynthesis was performed and utilized for Interpretation. Current study was also evaluated with a Computer Aided Detection (CAD) system. FINDINGS: The tissue of left breast is heterogeneously dense, which could obscure detection of small masses. No significant masses, calcifications, or other findings are seen in the breast. There has been no significant interval change. IMPRESSION: NEGATIVE RECOMMENDATION:There is no mammographic evidence of malignancy. A 1 year screening mammogram is recommended.(03/23/2019) Professional services are provided by the [facility]. Dr. Rita Jacobs D.O. /penrad:03/22/2018 14:51:01 Attending Technologist(s): Fatuma Wallis, [facility] Information Security Manager(s): RT Raghav(R)(M), [facility] letter sent: BI-RADS 1/2 Mammogram BI-RADS: 1 Negative 03/22/2018 - - Read by: Rita Jacobs DO Dictated Date/time: 03/22/18 14:51 Electronically Signed by: Riat Jacobs DO 03/22/18 14:51 FINAL REPORT [facility] Chest 2 views DX Chest 2 views DX Patient Name: VICKY SHIELDS : 1950; Age: 67 years Female MR: [id number] Study: Chest 2 views DX Order Time: 07/14/2017 10:42 AM NEWSPAPER DELIVERY COUNSELOR CLINICAL INDICATION: C50.211 Malignant neoplasm of upper-inner quadrant of right female breast - C50.211 Malignant neoplasm of upper-inner quadrant of right female breast, M81.0 Age-related osteoporosis without current pathological fracture COMPARISON: Chest radiograph on 06/01/2017 FINDINGS: Lines: None. Lungs: The lungs are grossly clear. Mediastinum: The cardiac silhouette is within normal limits of size. Midline trachea. Bones and soft tissues: No acute abnormalities. IMPRESSION: No acute cardiopulmonary abnormalities. SL: [id number] 07/14/2017 - - Read by: Bob Colvin MD Dictated Date/time: 07/14/17 13:57 Electronically Signed by: Bob Covlin MD 07/14/17 13:58 FINAL REPORT [facility] Bone Density Scan Bone Density Scan Patient Name: VICKY SHIELDS : 1950; Age: 67 years y/o Female MR: [id number] Study: Bone Density Scan 07/14/2017 10:45 AM NEWSPAPER DELIVERY COUNSELOR Ordering Physician: Clara Chaney DO Clinical Indication: - osteoporosis. Comparison: None FINDINGS: The axial lumbar bone mineral density is 118% of the expected age matched bone mass with a T-score 1.7. Axial lumbar average BMD is 1.238 g/cm2. The left femoral neck bone mineral density is 93% of the expected age matched bone mass with a T-score of -0.5. Left femoral neck BMD is 0.791 g/cm2. The total femoral BMD is 0.972 g/cm2. IMPRESSION: 1. Normal bone mineral density of the lumbar spine. 2. Normal bone mineral density of the left femoral neck. The World Health Organization has established that OSTEOPOROSIS occurs at -2.5 or more standard deviations (SD) below peak bone mass. OSTEOPENIA (low bone mass) occurs at -1.0 standard deviations to -2.5 standard deviations below peak bone mass. SL: [id number] 07/14/2017 - - Read by: Alan Elkins MD Dictated Date/time: 07/14/17 11:07 Electronically Signed by: Alan Elkins MD 07/14/17 11:07 FINAL REPORT [facility] Sentinal Node injection NM Sentinal Node injection NM Patient Name: VICKY SHIELDS : 1950; Age: 67 years y/o Female MR: [id number] Study: Right Breast Sentinal Node injection NM 06/05/2017 7:00 AM CDT Ordering Physician: Gayatri Bhatt MD Clinical Indication: - Malignant neoplasm of upper-inner quadrant of right female breast; Comparison: None Utilizing sterile technique, 1 mCi of technetium 99m filtered sulfur colloid was injected into the subcutaneous soft tissues of the right breast in the upper inner quadrant in 4 divided doses. SL: [id number] 06/05/2017 - - Read by: Alan Carr MD Dictated Date/time: 06/05/17 07:54 Electronically Signed by: Alan Carr MD 06/05/17 07:55 FINAL REPORT [facility] CHEM PANEL eGFR 75 mL/min/1.73m2 06/01/2017 Result Comment: The eGFR is calculated using the CKD-EPI formula. In most young, healthy individuals the eGFR will be >90 mL/min/1.73m2. The eGFR declines with age. An eGFR of 60-89 may be normal in some populations, particularly the elderly, for whom the CKD-EPI formula has not been extensively validated. Use of the eGFR is not recommended in the following populations: Individuals with unstable creatinine concentrations, including patients and those with serious co-morbid conditions. Patients with extremes in muscle mass or diet. The data above are obtained from the National Kidney Disease Education Program (NKDEP) which additionally recommends that when the eGFR is used in patients with extremes of body mass index for purposes of drug dosing, the eGFR should be multiplied by the estimated BMI. [facility] CHEM PANEL CO2 29 meq/L 24 - 32 06/01/2017 [facility] CHEM PANEL Calcium Lvl 9.4 mg/dL 8.5 - 10.5 06/01/2017 [facility] CHEM PANEL Potassium Lvl 4.4 meq/L 3.5 - 5.1 06/01/2017 [facility] CHEM PANEL Chloride Lvl 104 meq/L 95 - 109 06/01/2017 [facility] CHEM PANEL Sodium Lvl 141 meq/L 135 - 145 06/01/2017 [facility] CHEM PANEL Glucose Lvl 84 mg/dL 70 - 99 06/01/2017 [facility] CHEM PANEL Creatinine Lvl 0.80 mg/dL 0.50 - 1.40 06/01/2017 [facility] CHEM PANEL BUN 19 mg/dL 7 - 22 06/01/2017 [facility] CHEM PANEL AGAP 12.4 meq/L 10.0 - 20.0 06/01/2017 [facility] HEMATOLOGY Segs-Bands # 3.6 K/CMM 1.5 - 8.1 06/01/2017 [facility] HEMATOLOGY Lymphocytes 25.2 % 20.0 - 40.0 06/01/2017 [facility] HEMATOLOGY Monocytes 7.0 % 2.0 - 12.0 06/01/2017 [facility] HEMATOLOGY Eosinophils 2.1 % 0.0 - 4.0 06/01/2017 [facility] Basophils 0.7 % 0.0 - 1.0 06/01/2017 [facility] Monocytes # 0.4 K/CMM 0.0 - 0.8 06/01/2017 [facility] HEMATOLOGY Lymphocytes # 1.4 K/CMM 1.0 - 5.5 06/01/2017 [facility] Eosinophils # 0.1 K/CMM 0.0 - 0.5 06/01/2017 [facility] Segs 65.0 % 45.0 - 75.0 06/01/2017 [facility] MCV 93.0 fL 80.0 - 98.0 06/01/2017 [facility] Hct 40.5 % 36.0 - 48.0 06/01/2017 [facility] WBC 5.5 K/CMM 3.7 - 10.4 06/01/2017 [facility] Hgb 13.4 g/dL 12.0 - 16.0 06/01/2017 [facility] RBC 4.36 M/CMM 4.20 - 5.40 06/01/2017 [facility] Platelet 254 K/CMM 133 - 450 06/01/2017 [facility] MPV 8.9 fL 7.4 - 10.4 06/01/2017 [facility] MCH 30.8 pg 27.0 - 31.0 06/01/2017 [facility] RDW 14.1 % 11.5 - 14.5 06/01/2017 [facility] MCHC 33.1 g/dL 32.0 - 36.0 06/01/2017 [facility] TUMOR MARKERS CA 27 29 10 unit/mL 0 - 40 06/01/2017 [facility] TUMOR MARKERS CEA 2.6 ng/mL 0.0 - 3.0 06/01/2017 [facility] Chest 2 views DX Chest 2 views DX EXAM: Chest radiographs HISTORY: Breast cancer COMPARISON: None TECHNIQUE: Frontal and lateral views of the chest FINDINGS: Possible COPD. No appreciable pneumonia, edema or pleural effusion. Heart size upper normal. SL: [id number] 06/01/2017 - - Read by: Howard Colmenares MD Dictated Date/time: 06/01/17 12:15 Electronically Signed by: Howard Colmenares MD 06/01/17 12:17 FINAL REPORT [facility] Breast w/wo contrast bilat MRI Breast w/wo contrast bilat MRI AMENDMENT: 05/08/2017 Rani Chase M.D. This MRI was interpreted in conjunction with outside mammogram and ultrasound studies dated 04/06/2017, 04/04/2017 and 03/22/2017. Amended BI-RADS: 6 Known biopsy proven malignancy - BREAST W/WO CONTRAST BILAT MRI BREAST MRI OF BOTH BREASTS - WITH CAD: 05/03/2017 CLINICAL: Right Breast Cancer- C50.311/Right Breast Cancer. No prior exams were available for comparison. MRI images were obtained. Post processing was performed including computer aided calculations of any tumor volumes and dimensions. Bilateral background breast enhancement is mild. Technique: Multisequence and multiplanar MRI of both breasts was performed prior to and following the administration of 14 mL multihance contrast. The study is limited by motion artifact. Indication: newly diagnosed right breast cancer Findings: The breast composition is heterogeneously dense. There is moderate background parenchymal enhancement. The biopsy proven malignancy appears as a conglomerate of confluent masses with associated non mass enhancement in the right breast upper inner quadrant centered at 2 o'clock, 3 cm from the nipple measuring 5.1 x 3.4 x 2.3 cm. The 2cm index mass is identified in the 1-2 o'clock position, 6 cm from the nipple with associated ribbon clip denoting site of recent biopsy. No ultrasound imaging or pathology is available for review at the time of interpretation. There are scattered areas of progressive enhancement noted in both breasts with corresponding T2 hyperintensity in keeping with benign fibrocystic type changes. No abnormal enhancement is noted in either breast. No suspicious mass or abnormal enhancement is noted in either breast. The visualized axillary and internal mammary fred basins are within normal limits. IMPRESSION: KNOWN BIOPSY PROVEN MALIGNANCY Multifocal right breast carcinoma in the upper inner quadrant measuring 5.3 cm in maximal dimension. No additional suspicious findings noted in either breast. BI-RADS 6. Known Carcinoma. Professional services are provided by the [facility]. Leslie Valadez M.D. mk/:05/04/2017 14:54:18 Information Security Manager: Sanjuana Thornton [facility] Outpatient Imaging This exam was dictated and interpreted by [id number] at [facility]. letter sent: Birad 6 MRI BI-RADS: 6 Known biopsy proven malignancy 05/03/2017 - - Read by: Leslie Valadez MD Dictated Date/time: 05/08/17 11:09 Electronically Signed by: Leslie Valadez MD 05/08/17 11:09 FINAL REPORT - - Read by: Leslie Valadez MD Dictated Date/time: 05/04/17 14:54 Electronically Signed by: Leslie Valadez MD 05/04/17 14:54 FINAL REPORT [facility] [place] Vital Signs Vital Sign Value Date Comments Source Temperature Oral (F) 98.2 F 06/06/2017 [place] [facility] Heart Rate 76 06/06/2017 [place] [facility] Respitory Rate 18 06/06/2017 [place] [facility] Systolic (mm Hg) 115 06/06/2017 [place] [facility] Diastolic (mm Hg) 68 06/06/2017 [place] [facility] Systolic (mm Hg) 118 06/06/2017 [place] [facility] Diastolic (mm Hg) 73 06/06/2017 [place] [facility] Heart Rate 79 06/06/2017 [place] [facility] Respitory Rate 16 06/06/2017 [place] [facility] Temperature Oral (F) 98.5 F 06/06/2017 [place] [facility] Systolic (mm Hg) 112 06/06/2017 [place] [facility] Diastolic (mm Hg) 69 06/06/2017 [place] [facility] Respitory Rate 20 06/06/2017 [place] [facility] Heart Rate 73 06/06/2017 [place] [facility] Temperature Oral (F) 98.1 F 06/06/2017 [place] [facility] BMI Calculated 25.85 05/30/2017 [place] [facility] Height 165.1 cm 05/30/2017 [place] [facility] Weight 70.455 05/30/2017 [place] [facility] Encounters Location Location Details Encounter Type Encounter Number Reason For Visit Attending Provider ADM Date DC Date Status Source [facility] Outpatient [facility] [place] [facility] [id number] Gayatri Bhatt 05/03/2017 05/04/2017 [facility] [place] [facility] Bedded Outpatient [id number] Gayatri Miller 06/05/2017 06/06/2017 [facility] Outpatient [id number] Clara Chaney 07/14/2017 07/15/2017 [facility] Procedures Procedure Code Date Perfomer Comments Source Hysterectomy [id number] [facility] Procedure<sup>1</sup> [id number] trigger finger x3 left hand [place] Hysterectomy [id number] [facility] Procedure<sup>1</sup> [id number] trigger finger x3 [place] hand [place]
--- OUTSIDE RECORDS SUMMARY | 2018-06-05 05:19 | XMS REPORT | Summary of Care ---
Author Author [facility] Organization [facility] Address Unknown Phone Unavailable Encounter KATHRYN Davis(FRANKIE) [id number] Date(s): 06/05/17 - 06/06/17 [facility] [address] [place] [address]- [phone] Discharge Disposition: Home or Self Care Attending Physician: Gayatri Bhatt MD Referring Physician: Gayatri Bhatt MD Vital Signs 1 2 3 Most recent to oldest [Reference Range]: 165.1 cm (05/30/17 10:36 AM) Height 98.2 DegF (06/06/17 12:35 PM) 98.5 DegF (06/06/17 7:20 AM) 98.1 DegF (06/06/17 4:00 AM) Temperature Oral [96.4-99.1 DegF] 115/68 mmHg (06/06/17 12:35 PM) 118/73 mmHg (06/06/17 7:20 AM) 112/69 mmHg (06/06/17 4:00 AM) Blood Pressure [90-140/60-90 mmHg] 18 BRMIN (06/06/17 12:35 PM) 16 BRMIN (06/06/17 7:20 AM) 20 BRMIN (06/06/17 4:00 AM) Respiratory Rate [14-20 BRMIN] 76 bpm (06/06/17 12:35 PM) 79 bpm (06/06/17 7:20 AM) 73 bpm (06/06/17 4:00 AM) Peripheral Pulse Rate [60-100 bpm] 70.455 kg (05/30/17 10:36 AM) Weight 25.85 m2 (05/30/17 10:36 AM) Body Mass Index Problem List Condition Effective Dates Status Health Status Informant Anxiety(Confirmed) Active Depression(Confirmed Active ) Arthritis(Confirmed) Active HTN Active (hypertension)(Confi rmed) Breast Active cancer(Confirmed) Allergies, Adverse Reactions, Alerts Substance Reaction Severity Status statins Active Medications acetaminophen 650 mg, 2 tab, Route: PO, Drug form: TAB, Q4H, Dosing Weight 70.455, kg, PRN Guy n 1-3/Temp > 100.4 F, Start date: 06/05/17 12:06:00 CDT, Duration: 30 day, Stop date: 07/05/17 12:05:00 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 Notes: Do not exceed 4 gm/day. (Same as: Tylenol) Start Date: 06/05/17 Stop Date: 06/06/17 Status: Discontinued acetaminophen 650 mg, 2 tab, Route: PO, Drug form: TAB, Q4H, Dosing Weight 70.455, kg, PRN Guy n 1-3/Temp > 100.4 F, Start date: 06/05/17 9:25:00 CDT, Duration: 30 day, Stop date: 07/05/17 9:24:00 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 Notes: Do not exceed 4 gm/day. (Same as: Tylenol) Start Date: 06/05/17 Stop Date: 06/05/17 Status: Discontinued acetaZOLAMIDE 250 mg, Route: IV, Drug form: PDR/INJ, ONCE, Dosing Weight 70.455, kg, PRN Cramp s, Start date: 06/05/17 8:09:00 CDT Notes: (Same as: Diamox) Start Date: 06/05/17 Stop Date: 06/05/17 Status: Discontinued ANES acetaminophen 1,000 mg, 2 tab, Route: PO, Drug form: TAB, ONCE, Dosing Weight 70.455, kg, PRN Pain Score 1-3, Start date: 06/05/17 8:09:00 CDT, Duration: 1 doses or times, St op date: Limited # of times Notes: Max acetaminophen 4000 mg/day (4 gm/day). (Same as: Tylenol Extra Streng ) Start Date: 06/05/17 Stop Date: 06/05/17 Status: Discontinued ANES diphenhydrAMINE 12.5 mg, 0.25 mL, Route: IVP, Drug form: INJ, Q6H, Dosing Weight 70.455, kg, PRN Itching, Start date: 06/05/17 8:09:00 CDT, Duration: 30 day, Stop date: 07/05/17 8:08:00 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 Notes: (Same as: Benadryl) Start Date: 06/05/17 Stop Date: 06/05/17 Status: Discontinued ANES flumazenil 0.2 mg, 2 mL, Route: IVP, Drug form: INJ, PRN, Dosing Weight 70.455, kg, PRN Deshawn zodiazepine Reversal, Initial dose, Start date: 06/05/17 8:09:00 CDT, Duration: 30 day, Stop date: 07/05/17 7:08:00 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 Notes: (Same as: Romazicon) Start Date: 06/05/17 Stop Date: 06/05/17 Status: Discontinued ANES hydrALAZINE 10 mg, 0.5 mL, Route: IVP, Drug form: INJ, Q20Min, Dosing Weight 70.455, kg, PRN Elevated BP, Start date: 06/05/17 8:09:00 CDT, Duration: 2 doses or times, Stop date: Limited # of times Notes: (Same as: Apresoline)Push over 5 minutes Start Date: 06/05/17 Stop Date: 06/05/17 Status: Discontinued ANES HYDROmorphone 0.5 mg, 0.5 mL, Route: IVP, Drug form: INJ, Q5Min, Dosing Weight 70.455, kg, PRN Pain Score 7-10, Start date: 06/05/17 8:09:00 CDT, Duration: 4 doses or times, Stop date: Limited # of times Start Date: 06/05/17 Stop Date: 06/05/17 Status: Discontinued ANES meperidine 12.5 mg, 0.25 mL, Route: IVP, Drug form: INJ, Q30Min, Dosing Weight 70.455, kg, PRN Other -See Comment, For shivering, Start date: 06/05/17 8:09:00 CDT, Duratio n: 2 doses or times, Stop date: Limited # of times Notes: (Same As: Demerol) Start Date: 06/05/17 Stop Date: 06/05/17 Status: Discontinued ANES metoprolol 1 mg, 1 mL, Route: IVP, Drug form: INJ, Q5Min, Dosing Weight 70.455, kg, PRN Oth er -See Comment, Start date: 06/05/17 8:09:00 CDT, Duration: 5 doses or times, S top date: Limited # of times Notes: (Same as: Lopressor)Push over 2 minutes Start Date: 06/05/17 Stop Date: 06/05/17 Status: Discontinued ANES morphine Sulfate 2 mg, 1 mL, Route: IVP, Drug form: SOLN, Q5Min, Dosing Weight 70.455, kg, PRN Pa in Score 4-6, Start date: 06/05/17 8:09:00 CDT, Duration: 5 doses or times, Stop date: Limited # of times Start Date: 06/05/17 Stop Date: 06/05/17 Status: Discontinued ANES naloxone 0.4 mg, 1 mL, Route: IVP, Drug form: INJ, Q2MIN, Dosing Weight 70.455, kg, PRN N arcotic Reversal, Start date: 06/05/17 8:09:00 CDT, Duration: 8 doses or times, Stop date: Limited # of times Notes: Same as Narcan Start Date: 06/05/17 Stop Date: 06/05/17 Status: Discontinued ANES ondansetron 4 mg, 2 mL, Route: IVP, Drug form: INJ, ONCE, Dosing Weight 70.455, kg, PRN Naus ea & Vomiting, Start date: 06/05/17 8:09:00 CDT Notes: (Same as: Glendy) MEDICATION WASTE Product Size: 4 mgProduct Was aline: ___ mg Start Date: 06/05/17 Stop Date: 06/05/17 Status: Discontinued ANES oxyCODONE 5 mg, 1 tab, Route: PO, Drug form: TAB, Q4H, Dosing Weight 70.455, kg, PRN Pain Score 4-6, Start date: 06/05/17 8:09:00 CDT, Duration: 30 day, Stop date: 8:08:00 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 Notes: (Same as: Roxicodone) Start Date: 06/05/17 Stop Date: 06/05/17 Status: Discontinued ANES oxyCODONE 10 mg, 2 tab, Route: PO, Drug form: TAB, Q4H, Dosing Weight 70.455, kg, PRN Pain Score 7-10, Start date: 06/05/17 8:09:00 CDT, Duration: 30 day, Stop date: 06/15 09/30 8:08:00 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 Notes: (Same as: Roxicodone) Start Date: 06/05/17 Stop Date: 06/05/17 Status: Discontinued ANES promethazine 6.25 mg, Route: IVPB, ONCE, Dosing Weight 70.455, kg, PRN Nausea & Vomiting, Start date: 06/05/17 8:09:00 CDT Start Date: 06/05/17 Stop Date: 06/05/17 Status: Discontinued ANES scopolamine 1.5 mg transdermal film 1 patch, Route: TOP, Drug Form: ERFILM, Dosing Weight 70.455, kg, ONCE, Apply be hind ear. Avoid use in elderly., Start date: 06/05/17 8:09:00 CDT, Stop date: 8:09:00 CDT Notes: Change patch every 72 hours (Same as: Transderm-Scop) Start Date: 06/05/17 Stop Date: 06/05/17 Status: Completed BD Normal Saline Flush 10 mL, Route: IVP, Drug Form: INJ, PRN, PRN Line Flush, Start date: 06/05/17 16: 34:00 CDT, Duration: 30 day, Stop date: 07/05/17 15:33:00 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 Notes: (Same as: BD Posiflush) Start Date: 06/05/17 Stop Date: 06/06/17 Status: Discontinued Calcium 500+D 1 tab, CHEW, Daily Start Date: 05/30/17 Status: Ordered cefadroxil 1 g oral tablet 1,000 mg=1 tab, PO, Daily Start Date: 05/30/17 Status: Ordered ceFAZolin 2 gm, 100 mL, Route: IVPB, Drug form: INJ, [id number], Start date: 06/05/17 18:00:00 CDT, Duration: 3 doses or times, Stop date: 06/06/17 10:00:00 CDT, ABX Indicati on: Surgical Prophylaxis Notes: Same as: Ancef Start Date: 06/05/17 Stop Date: 06/06/17 Status: Pending Complete ceFAZolin (SCIP) 1 gm, Route: IVPB, Drug form: INJ, Q8H, Dosing Weight 70.455, kg, Start date: 16:00:00 CDT, Duration: 2 doses or times, Stop date: 06/06/17 0:00:00 CDT , ABX Indication: Surgical Prophylaxis Start Date: 06/05/17 Stop Date: 06/05/17 Status: Deleted ceFAZolin (SCIP) 1 gm, Route: IVPB, Drug form: INJ, Q8H, Dosing Weight 70.455, kg, Start date: 16:00:00 CDT, Duration: 2 doses or times, Stop date: 06/06/17 0:00:00 CDT , ABX Indication: Surgical Prophylaxis Start Date: 06/05/17 Stop Date: 06/05/17 Status: Deleted clindamycin (SCIP) 600 mg, Route: IVPB, Drug form: INJ, Q8H, Dosing Weight 70.455, kg, Start date: 06/05/17 16:00:00 CDT, Duration: 2 doses or times, Stop date: 06/06/17 0:00:00 C DT, ABX Indication: Surgical Prophylaxis Start Date: 06/05/17 Stop Date: 06/05/17 Status: Deleted clindamycin (SCIP) 600 mg, Route: IVPB, Drug form: INJ, Q8H, Dosing Weight 70.455, kg, Start date: 06/05/17 16:00:00 CDT, Duration: 2 doses or times, Stop date: 06/06/17 0:00:00 C DT, ABX Indication: Surgical Prophylaxis Start Date: 06/05/17 Stop Date: 06/05/17 Status: Deleted enoxaparin 40 mg, Route: SUB-Q, Drug form: INJ, [id number], Dosing Weight 70.455, kg, Start d ate: 06/06/17 11:30:00 CDT, Duration: 30 day, Stop date: 07/05/17 11:30:00 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 Start Date: 06/06/17 Stop Date: 06/05/17 Status: Deleted Eye Health Formula oral capsule 1 cap, PO, Daily Start Date: 05/30/17 Status: Ordered Fish Oil 1,000 mg, PO, Daily Start Date: 05/30/17 Status: Ordered insulin lispro 8 unit, 0.08 mL, Route: SUB-Q, Drug form: SOLN, Sliding Scale, Dosing Weight 70. 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 ([facility]: [facility] )"Single Patient Use Only "WASTE: F/P - Black; E - Municipal Trash Bin Stabl e for 28 days at room temperature.Expires in days from Date Start Date: 06/05/17 Stop Date: 06/05/17 Status: Discontinued insulin lispro 4 unit, 0.04 mL, Route: SUB-Q, Drug form: SOLN, Sliding Scale, Dosing Weight 70. 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 (Same as: [facility] )"Single Patient Use Only "WASTE: F/P - Black; E - Municipal Trash Bin Stabl e for 28 days at room temperature.Expires in days from Date Start Date: 06/05/17 Stop Date: 06/05/17 Status: Discontinued insulin lispro 6 unit, 0.06 mL, Route: SUB-Q, Drug form: SOLN, Sliding Scale, Dosing Weight 70. 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 (Same as: [facility] )"Single Patient Use Only "WASTE: F/P - Black; E - Municipal Trash Bin Stabl e for 28 days at room temperature.Expires in days from Date Start Date: 06/05/17 Stop Date: 06/05/17 Status: Discontinued insulin lispro 2 unit, 0.02 mL, Route: SUB-Q, Drug form: SOLN, Sliding Scale, Dosing Weight 70. 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 (Same as: [facility] )"Single Patient Use Only "WASTE: F/P - Black; E - Municipal Trash Bin Stabl e for 28 days at room temperature.Expires in days from Date Start Date: 06/05/17 Stop Date: 06/05/17 Status: Discontinued insulin lispro 10 unit, 0.1 mL, Route: SUB-Q, Drug form: SOLN, Sliding Scale, Dosing Weight 70. 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 (Same as: Humal og )"Single Patient Use Only "WASTE: F/P - Black; E - Municipal Trash Bin Stabl e for 28 days at room temperature.Expires in days from Date Start Date: 06/05/17 Stop Date: 06/05/17 Status: Discontinued Lactated Ringers 1,000 mL 1,000 mL, Rate: 40 ml/hr, Infuse over: 25 hr, Route: IV, Dosing Weight 70.455 kg , Total Volume: 1,000, Start date: 06/05/17 12:06:00 CDT, Duration: 30 day, Stop date: 07/05/17 12:05:00 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 Start Date: 06/05/17 Stop Date: 06/06/17 Status: Discontinued Lactated Ringers 1,000 mL 1,000 mL, Rate: 40 ml/hr, Infuse over: 25 hr, Route: IV, Dosing Weight 70.455 kg , Total Volume: 1,000, Start date: 06/05/17 9:25:00 CDT, Duration: 30 day, Stop date: 07/05/17 9:24:00 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 Start Date: 06/05/17 Stop Date: 06/05/17 Status: Discontinued lisinopril 20 mg, PO, Daily Start Date: 05/30/17 Status: Ordered lisinopril PO, Daily, 0 Refill(s) Start Date: 05/30/17 Status: Ordered lisinopril 20 mg, 1 tab, Route: PO, Drug form: TAB, Daily, Dosing Weight 70.455, kg, Start date: 06/06/17 9:00:00 CDT, Duration: 30 day, Stop date: 07/05/17 9:00:00 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 Notes: (Same as: Prinivil, Zestril) Start Date: 06/06/17 Stop Date: 06/06/17 Status: Discontinued LORazepam 1 mg, 1 tab, Route: PO, Drug form: TAB, Daily, Dosing Weight 70.455, kg, Start d ate: 06/06/17 9:00:00 CDT, Duration: 30 day, Stop date: 07/05/17 9:00:00 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 Notes: (Same as: Ativan) Start Date: 06/06/17 Stop Date: 06/06/17 Status: Discontinued LORazepam 1 mg, PO, Daily Start Date: 05/30/17 Status: Ordered Lovenox 40 mg, 0.4 mL, Route: SUB-Q, Drug form: INJ, [id number], Start date: 06/06/17 8:00 :00 CDT, Duration: 30 day, Stop date: 07/05/17 8:00:00 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 Notes: (Same as: Lovenox) Start Date: 06/06/17 Stop Date: 06/06/17 Status: Discontinued morphine Sulfate 2 mg, 1 mL, Route: IVP, Drug form: SOLN, Q2H, Dosing Weight 70.455, kg, PRN Pain Score 1-3, Start date: 06/05/17 12:06:00 CDT, Duration: 30 day, Stop date: 06/15 09/30 12:05:00 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[employer] Start Date: 06/05/17 Stop Date: 06/06/17 Status: Discontinued morphine Sulfate 2 mg, 1 mL, Route: IVP, Drug form: SOLN, Q2H, Dosing Weight 70.455, kg, PRN Pain Score 1-3, Start date: 06/05/17 9:25:00 CDT, Duration: 30 day, Stop date: 07/05 9:24:00 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 Start Date: 06/05/17 Stop Date: 06/05/17 Status: Discontinued ondansetron 4 mg, 2 mL, Route: IVP, Drug form: INJ, Q2H, Dosing Weight 70.455, kg, PRN Nause a & Vomiting, Start date: 06/05/17 12:06:00 CDT, Duration: 30 day, Stop date: 07/05/17 12:05:00 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[employer] Notes: (Same as: Glendy) MEDICATION WASTE Product Size: 4 mgProduct Was aline: ___ mg Start Date: 06/05/17 Stop Date: 06/06/17 Status: Discontinued ondansetron 4 mg, 2 mL, Route: IVP, Drug form: INJ, Q2H, Dosing Weight 70.455, kg, PRN Nause a & Vomiting, Start date: 06/05/17 9:25:00 CDT, Duration: 30 day, Stop date: 07/05/17 9:24:00 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[employer] Notes: (Same as: Glendy) MEDICATION WASTE Product Size: 4 mgProduct Was aline: ___ mg Start Date: 06/05/17 Stop Date: 06/05/17 Status: Discontinued Paxil 80 mg, 4 tab, Route: PO, Drug form: TAB, Daily, Dosing Weight 70.455, kg, Start date: 06/06/17 9:00:00 CDT, Duration: 30 day, Stop date: 07/05/17 9:00:00 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 Notes: (Same as: Paxil) Start Date: 06/06/17 Stop Date: 06/06/17 Status: Discontinued Paxil 80 mg, PO, Daily Start Date: 05/30/17 Status: Ordered Pristiq 50 mg, PO, Daily Start Date: 05/30/17 Status: Ordered Pristiq 50 mg oral tablet, extended release 50 mg, 1 tab, Route: PO, Drug form: ERTAB, Daily, Dosing Weight 70.455, kg, Star t date: 06/06/17 9:00:00 CDT, Duration: 30 day, Stop date: 07/05/17 9:00:00 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 Notes: Same as: Pristiq Non-Formulary Item Start Date: 06/06/17 Stop Date: 06/06/17 Status: Discontinued Reglan 10 mg, 2 mL, Route: IVP, Drug form: INJ, Q6H, Dosing Weight 70.455, kg, PRN Naus ea & Vomiting, Start date: 06/05/17 8:09:00 CDT, Duration: 30 day, Stop date: 07/05/17 8:08:00 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[employer] Notes: (Same as: Reglan) Start Date: 06/05/17 Stop Date: 06/05/17 Status: Discontinued Sodium Chloride 0.9% IV 250 mL, Route: IVPB, Start date: 06/05/17 16:34:00 CDT, Duration: 30 day, Stop d ate: 07/05/17 15:33:00 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[employer]Y, PRN Line Flush Start Date: 06/05/17 Stop Date: 06/06/17 Status: Discontinued tramadol 50 mg oral tablet 1 tab, Route: PO, Drug form: TAB, Q4H, Dosing Weight 70.455, kg, Start date: 16:00:00 CDT, Duration: 30 day, Stop date: 07/05/17 12:00:00 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[employer] Start Date: 06/05/17 Stop Date: 06/05/17 Status: Deleted tramadol 50 mg oral tablet 2 tab, Route: PO, Drug form: TAB, Q4H, Dosing Weight 70.455, kg, Start date: 16:00:00 CDT, Duration: 30 day, Stop date: 07/05/17 12:00:00 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[employer]Y Start Date: 06/05/17 Stop Date: 06/05/17 Status: Deleted tramadol 50 mg oral tablet 100 mg, 2 tab, Route: PO, Drug form: TAB, Q4H, Dosing Weight 70.455, kg, Start d ate: 06/05/17 12:00:00 CDT, Duration: 30 day, Stop date: 07/05/17 8:00:00 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 (Same As: Ultra) Start Date: 06/05/17 Stop Date: 06/06/17 Status: Discontinued Ultracet oral tablet 1 tab, PO, Q8H, PRN Pain, X 10 day, # 20 tab, 0 Refill(s) Start Date: 06/06/17 Stop Date: 06/16/17 Status: Ordered Vitamin B12 1,000 microgram, PO, Daily Start Date: 05/30/17 Status: Ordered vitamin E 400 IntlUnit, PO, Daily Start Date: 05/30/17 Status: Ordered Womens Pack oral tablet 1 tab, PO, Daily Start Date: 05/30/17 Status: Ordered Results ELECTROLYTES Most recent to 1 oldest [Reference Range]: Sodium Lvl [135-145 141 mEq/L mEq/L] (06/01/17 11:26 AM) Potassium Lvl 4.4 mEq/L [3.5-5.1 mEq/L] (06/01/17 11:26 AM) Chloride Lvl [95-109 104 mEq/L mEq/L] (06/01/17 11:26 AM) CO2 [24-32 mEq/L] 29 mEq/L (06/01/17 11:26 AM) AGAP [10.0-20.0 12.4 mEq/L mEq/L] (06/01/17 11:26 AM) CHEM PANEL Most recent to 1 oldest [Reference Range]: Creatinine Lvl 0.80 mg/dL [0.50-1.40 mg/dL] (06/01/17 11:26 AM) eGFR 75 mL/min/1.73m2 1 *NA* (06/01/17 11:26 AM) BUN [7-22 mg/dL] 19 mg/dL (06/01/17 11:26 AM) Glucose Lvl [70-99 84 mg/dL mg/dL] (06/01/17 AM) Calcium Lvl 9.4 mg/dL [8.5-10.5 mg/dL] (06/01/17 11:26 AM) 1Result Comment: The eGFR is calculated using the [...] from the National Kidney Disease Education Program ( NKDEP) which additionally recommends that when the eGFR is used in patients with extremes of body mass index for purposes of drug dosing, the eGFR should be mul tiplied by the estimated BMI. HEMATOLOGY Most recent to 1 oldest [Reference Range]: WBC [3.7-10.4 K/CMM] 5.5 K/CMM (06/01/17:26 AM) RBC [4.20-5.40 4.36 M/CMM M/CMM] (06/01/17 11:26 AM) Hgb [12.0-16.0 g/dL] 13.4 g/dL (06/01/17 AM) Hct [36.0-48.0 %] 40.5 % (06/01/17 11:26 AM) MCV [80.0-98.0 fL] 93.0 fL (06/01/17 11:26 AM) MCH [27.0-31.0 pg] 30.8 pg (06/01/17: AM) MCHC [32.0-36.0 33.1 g/dL g/dL] (06/01/17 1126 AM) RDW [11.5-14.5 %] 14.1 % (06/01/17: AM) Platelet [133-450 254 K/CMM K/CMM] (06/01/17 11:26 AM) MPV [7.4-10.4 fL] 8.9 fL (06/01/17 11:26 AM) Segs [45.0-75.0 %] 65.0 % (06/01/17 11:26 AM) Lymphocytes 25.2 % [20.0-40.0 %] (06/01/17 11:26 AM) Monocytes [2.0-12.0 7.0 % %] (06/01/17 11:26 AM) Eosinophils [0.0-4.0 2.1 % %] (06/01/17 11:26 AM) Basophils [0.0-1.0 0.7 % %] (06/01/17 11:26 AM) Segs-Bands # 3.6 K/CMM [1.5-8.1 K/CMM] (06/01/17 11:26 AM) Lymphocytes # 1.4 K/CMM [1.0-5.5 K/CMM] (06/01/17 11:26 AM) Monocytes # [0.0-0.8 0.4 K/CMM K/CMM] (06/01/17 11:26 AM) Eosinophils # 0.1 K/CMM [0.0-0.5 K/CMM] (06/01/17 11:26 AM) TUMOR MARKERS Most recent to 1 oldest [Reference Range]: CEA [0.0-3.0 ng/mL] 2.6 ng/mL (06/01/17 11:26 AM) CA 27 29 [0-40 10 unit/mL unit/mL] (06/01/17 11:26 AM) Immunizations No data available for this section Procedures Procedure Date Related Diagnosis Body Site Hysterectomy Procedure1 1trigger finger x3 left hand Social History Social History Type Response Substance Abuse Use: None. Alcohol Current, Frequency: 1-2 times per month. Smoking Status Never smoker; Exposure to Tobacco Smoke None; Cigarette Smoking Last 365 Days No; Reg Smoking Cessation Counseling No Assessment and Plan Extracted from: Title: Clinical Document Author: Gayatri Bhatt MD Date: 06/06/17 Attending: Gayatri Bhatt MDPhone: Service: Surgery Code status: None Specified=FULL CODE Reason for Admission: C50.211 RIGHT BREAST CANCER Working DRG: None Documented Isolation: None Documented Consulting Physicians: Gayatri Bhatt MDOffice: Service: General Surgery Date: 06-06-2017 POD # 1 Awake, feeling well. VSS Flaps viable with ecchymosis laterally SADA drains: 250/90 serosanguinous A/P: s/p right mastectomy/SLN and return to OR for bleeding stable for discharge Regular diet Regular meds Prescription written No showering, driving, heavy lifting until seen in office Arm to shoulder level or above Empty and record drain output twice a day and as needed, bring record to follow-up visit Follow-up in 1 week Extracted from: Title: Clinical Document Author: Gayatri Bhatt MD Date: 06/05/17 Attending: Gayatri Bhatt MDPhone: Service: Surgery Code status: None Specified=FULL CODE Reason for Admission: C50.211 RIGHT BREAST CANCER Working DRG: None Documented Isolation: None Documented Consulting Physicians: (none on file) DATE OF PROCEDURE: 06-05-2017 PREOPERATIVE DIAGNOSIS: Right Breast Cancer POSTOPERATIVE DIAGNOSIS: Same PROCEDURE PERFORMED: Right Mastectomy w/ SLNM ANESTHESIA: Gen/ LMA; Dr. Truman Medina INDICATIONS FOR PROCEDURE: This is a 67 yo female with abnormal right breast MMG/US. She underwent core biopsy that showed "at least DCIS". Clinically she is stage I (T1N0) . She now presents for definitive mastectomy. She declined reconstruction. PROCEDURE: The patient was taken to the operating room in stable condition and placed on the operating table in the supine position. After general anesthesia was adequate, the right breast and axilla were prepped and draped in sterile fashion. An elliptical skin incision was made on the right chest wall to encompass the nipple areolar complex. Dissection was taken down through the subcutaneous tissues to the breast parenchyma. Skin flaps were created using electrocautery. Superiorly the dissection was taken to the clavicle, medially to the sternum, inferiorly to the superior border of the rectus abdominus muslce and laterally the latissimus muscle was identified. A suture was placed to aidan the 12:00 orientation position of the specimen. The breast was the removed off the chest wall in a medial to lateral direction to include the pectoralis fascia. Once off the lateral edge of the pectoralis muscle, the axillary fascia was incised. The neoprobe was used and 1 SLN was idenfied. This was circum ferentially dissected with electrocautery and sent to pathology. A total of 1 LN returned grossly and touch prep negative. There was no other visible or palpable abnomality within the axilla. The long thoracic and thoracodorsal nerve bundles were preserved. The lateral attachments were divided and the breast removed and sent to pathology. Wound was irrigated with sterile solution and hemostatis ach ieved with electrocautery. Local anesthetic was injected into the muscle surface and skin flaps. 2 15 mm Nic drains were passed exiting inferior to the wound and secured in place with nylon sutures. Evicel material was sprayed along the muscle surfaces and skin flaps. Wound edgeds were reapproximated with interrupted vicryl sutures followed by a monocryl subcuticular stitch. Surgical glue was applied. Drains were placed to suction and did maintain good self suction. Sterile dressing was applied over the incision and drain exit sites. The patient tolerated the procedure well, was awakened from general anesthesia, extubated, and taken to the recovery room in stable condition.
[2018-06-05 08:45] VITALS: BP 123/84
--- NOTE | 2018-06-11 12:40 | Operative Report ---
DATE OF PROCEDURE: June 05, 2018 PREOPERATIVE DIAGNOSIS: Stenosing tenosynovitis of right thumb, right index, right long and right ring fingers. POSTOPERATIVE DIAGNOSIS: Stenosing tenosynovitis of right thumb, right index, right long and right ring fingers. OPERATION PERFORMED: Tenovaginotomy of right thumb, right index, right long and right ring fingers. ANESTHESIA: General. HISTORY: The patient is a 68-year-old right/left hand-dominant female who presents with stenosing tenosynovitis of the right thumb, right index, right long and right ring fingers that is recalcitrant to conservative treatment. The risks, benefits, and alternatives of treatment were discussed with the patient and he/she is prepared to undergo the procedure as outlined. DESCRIPTION OF PROCEDURE: The patient was brought to the operating theater. After the induction of adequate general anesthesia, the patient was prepped and draped in a supine position. A time out was performed by the entire operating room team. An oblique incision was marked out over the A1 jonny of the right thumb, right index, right long and right ring fingers. The upper extremity was exsanguinated, and a tourniquet was inflated to a pressure of 250 mmHg. The incision was made through the skin and subcutaneous tissues. All venous tributaries were controlled with bipolar cautery. The incision was deepened through the palmar tissues. The neurovascular bundles on the radial and ulnar sides of the flexor tendon sheath were identified and retracted away from the flexor tendon sheath and preserved. The A1 jonny of the affected finger was identified and incised longitudinally, taking care to protect and preserve the flexor tendons within the sheath. After the complete length of the jonny had been transected, the tendons were placed in a range of motion. There was noted to be good motion without any locking. The wound was then copiously irrigated with bacteriostatic saline and closed with 5-0 nylon in an interrupted horizontal mattress fashion. A Marcaine field block was performed at the operative site. The tourniquet was deflated. All the fingers pinked up nicely. A sterile bulky conforming bandage was applied to the hand, and the patient was returned to the recovery room in satisfactory condition and was discharged with a postoperative instruction sheet as well as a followup appointment. Job#: [id number] EV
== END | disposition home or self-care (01) ==
LOC: OR 05:09
PROVIDERS: ATTEND Plastic Surgery
DX: M65.311 Trigger thumb, right thumb (principal); M65.321 Trigger finger, right index finger; M65.331 Trigger finger, right middle finger; M65.341 Trigger finger, right ring finger; C50.911 Malignant neoplasm of unspecified site of right female breast; I10 Essential (primary) hypertension; E11.9 Type 2 diabetes mellitus without complications; F32.9 Major depressive disorder, single episode, unspecified; F41.9 Anxiety disorder, unspecified; Z88.8 Allergy status to other drugs, medicaments and biological substances; Z01.810 Encounter for preprocedural cardiovascular examination; Z01.812 Encounter for preprocedural laboratory examination; Z01.818 Encounter for other preprocedural examination; Z90.11 Acquired absence of right breast and nipple
CPT/HCPCS: 26055 ×4; 36415; 71046; 80048; 85025; 93005; J0690; J1100; J1885; J2001; J2250; J2405

== ENCOUNTER → 2019-10-31 | Day surgery (SDC) | payer MEDICARE, OTHER ==
[2019-10-28 10:40] LABS: BASOPHILS % 0.5 % (0.0-1.0); EOSINOPHILS # (AUTO) 0.1 (0.0-0.4); HEMATOCRIT 42.3 % (34.2-44.1); HEMOGLOBIN 13.7 g/dL (12.0-16.0); LYMPHOCYTES # (AUTO) 1.7 (1.0-3.2); LYMPHOCYTES % 30.3 % (18.0-39.1); MEAN CORPUSCULAR HEMOGLOBIN 31.6 pg (28-32); MEAN CORPUSCULAR HGB CONC 32.4 g/dL (31-35); MEAN CORPUSCULAR VOLUME 97.7 fL (81-99); MONOCYTES # (AUTO) 0.4 (0.2-0.8); MONOCYTES % 7.8 % (4.4-11.3); NEUTROPHILS # (AUTO) 3.3 (2.1-6.9); NEUTROPHILS % 59.2 % (38.7-80.0); PLATELET COUNT 223 x10e3/uL (140-360); RED BLOOD COUNT 4.33 x10e6/uL (3.6-5.1)
--- NOTE | 2019-10-28 11:30 | Diagnostic Imaging Report ---
EXAMINATION: CHEST 2 VIEWS INDICATION: Pre-operative COMPARISON: Chest radiograph 05/30/2018 FINDINGS: LINES/TUBES:None LUNGS:The lungs are well-inflated. No focal consolidation or pulmonary edema. PLEURA:No pleural effusion or pneumothorax. MEDIASTINUM:The cardiomediastinal silhouette appears normal in size and shape. Atherosclerotic calcifications of the thoracic aorta. BONES/SOFT TISSUES:No acute osseous injury. Surgical clips at the right axilla. ABDOMEN:No free air under the diaphragm. IMPRESSION: No focal pneumonia or pulmonary edema. Signed by: Ken Frost MD on 10/28/2019 11:28 AM
[~2019-10-31] MED LIST changes: +ADVIL200 M1 PO; +BUPIVACAINE HCL 0.5% INJ 30 ML VIAL INJ ONE; +CALCIUM 500 +1 EAC2 PO; -CEFAZOLIN SOD 1 GM VIAL ONE; +CEFAZOLIN SOD 1 GM/NS 50ML 50 ML IV ONE; +COMPLETE SENIO1 EACH PO; -FENTANYL CITRATE/PF 100MCG/2 ML INJ ONE; -KETOROLAC TROMETHAMINE 30 MG/ML VIAL ONE; +LORATADINE10 M1 PO; -MIDAZOLAM HCL 2 MG/2 ML VIAL ONE; +MUPIROCIN 2% OINT 22 GM TUBE ONE; -ONDANSETRON HCL INJ 2 MG/ML VIAL ONE; +ONDANSETRON HCL INJ 2MG/ML 2ML 2 MG/ML VIAL ONE; +PRESERVISION A1 EAC2 PO; +REPATHA SY140 MG/1 M IV; +VITAMIN B-121000 MCG PO; +VITAMIN D33000 UNIT PO; +VITAMIN E400 UNI1 PO
[2019-10-31 08:00] VITALS: BP 144/81
--- NOTE | 2019-10-31 08:52 | Operative Report ---
DATE OF PROCEDURE: 10/31/2019 SURGEON: Francesco Taylor MD PREOPERATIVE DIAGNOSIS: Stenosing tenosynovitis of left index finger. POSTOPERATIVE DIAGNOSIS: Stenosing tenosynovitis of left index finger. OPERATION PERFORMED: Tenovaginotomy of left index finger. ANESTHESIA: General. HISTORY: The patient is a 69-year-old, left hand-dominant female, who presents with stenosing tenosynovitis of the left index finger that is recalcitrant to conservative treatment. The risks, benefits, and alternatives of treatment were discussed with the patient and they are prepared to undergo the procedure as outlined. DESCRIPTION OF PROCEDURE: The patient was brought to the operating theater. After the induction of adequate general/regional anesthesia, the patient was prepped and draped in a supine position. A time out was performed by the entire operating room team. An oblique incision was marked out over the A1 jonny of the left index finger. The upper extremity was exsanguinated, and a tourniquet was inflated to a pressure of 250 mmHg. The incision was made through the skin and subcutaneous tissues. All venous tributaries were controlled with bipolar cautery. The incision was deepened through the palmar tissues. The neurovascular bundles on the radial and ulnar sides of the flexor tendon sheath were identified and retracted away from the flexor tendon sheath and preserved. The A1 jonny of the affected finger was identified and incised longitudinally, taking care to protect and preserve the flexor tendons within the sheath. After the complete length of the jonny had been transected, the tendons were placed in a range of motion. There was noted to be good motion without any locking. The wound was then copiously irrigated with bacteriostatic saline and closed with 5-0 nylon in an interrupted horizontal mattress fashion. A Marcaine field block was performed at the operative site. The tourniquet was deflated. All the fingers pinked up nicely. A sterile bulky conforming bandage was applied to the hand, and the patient was returned to the recovery room in satisfactory condition and was discharged with a postoperative instruction sheet as well as a followup appointment. Francesco Taylor MD ER/MODL /[id number]
== END | disposition home or self-care (01) ==
LOC: OR 05:29
PROVIDERS: ATTEND Plastic Surgery
DX: M65.322 Trigger finger, left index finger (principal); C50.919 Malignant neoplasm of unspecified site of unspecified female breast; I10 Essential (primary) hypertension; Z88.8 Allergy status to other drugs, medicaments and biological substances; Z01.810 Encounter for preprocedural cardiovascular examination; Z01.812 Encounter for preprocedural laboratory examination; Z01.818 Encounter for other preprocedural examination
CPT/HCPCS: 26055; 36415; 71046; 85025; 93005; J0690; J1100; J2001; J2405; J2704